=== PATIENT | female | born 1995 | race Caucasian/White ===

== ENCOUNTER 2018-03-29 14:07 | Emergency (ER) | payer BC ==
[~2018-03-29] VITALS: Ht 165.1 cm; Wt 47.7 kg
[2018-03-29 14:12] VITALS: BP 105/55; PULSE 80; RESP 16; TEMP 98.9; O2SAT 97
[2018-03-29] MEDS ORDERED: predniSONE 5 MG/5 ML CUP PO ONE (15:00)
--- NOTE | 2018-03-29 15:06 | PD ---
HPI Chief Complaint: Bite or Sting Time Seen by Provider: 14:41 Travel History International Travel<30 days: No Contact w/Intl Traveler<30days: No Traveled to known affect area: No History of Present Illness HPI 22-year-old female presents emergency department for evaluation of presumed bug bites the bilateral lower extremities. Says that these lesions developed 2-3 days ago while walking to class. She denies any exposures. She denies actually seeing insects or feeling bug bites but as she was walking to class in class she noticed the increased swelling and redness of the lesions. Says that they are intensely pruritic and she has been using Benadryl and cortisone without significant improvement. Patient denies any exposures, new soaps or lotions, medications. She denies fever but says she has had chills. Says she has somewhat of an allergy to bug bites but usually goes away on its own. She denies history of anaphylaxis. She has no other complaints today. PFSH Past Medical History ?: Not LMP: 03/08/18 Social History Alcohol Use: No Tobacco Use: No Substance Use: No Allergies-Medications (Allergen,Severity, Reaction): Coded Allergies: No Known Allergies (Unverified , 03/29/18) Reported Meds & Prescriptions Reported Meds & Active Scripts Active Cephalexin Liq (Cephalexin Monohydrate) 250 Mg/5 Ml Susp 500 Mg PO Q8HR 7 Days Prednisone Liq (Prednisone) 5 Mg/5 Ml Soln 10 Mg PO DAILY 5 Days Review of Systems Except as stated in HPI: all other systems reviewed are Neg Physical Exam Narrative GENERAL: Well-nourished, well-developed patient, in NAD SKIN: Focused skin assessment warm/dry. No rashes or lesions. Bilateral lower extremities-scattered raised plaques measuring 5 mm with surrounding area of erythema approximately 5 cm, no obvious excoriations. No lymph angiopathic spread. HEAD: Normocephalic. Atraumatic. EYES: No scleral icterus. No injection or drainage. THROAT:Airway is patent. NECK: Supple, trachea midline. No JVD or lymphadenopathy. No meningismus. CARDIOVASCULAR: Regular rate and rhythm without murmurs, gallops, or rubs. RESPIRATORY: Breath sounds equal bilaterally. No accessory muscle use. No wheezes, rales, or rhonchi MUSCULOSKELETAL: No cyanosis, or edema. BACK: Nontender without obvious deformity. No CVA tenderness. Data Data Last Documented VS Vital Signs Date Time Temp Pulse Resp B/P (MAP) Pulse Ox O2 Delivery O2 Flow Rate FiO2 03/29/18 14:12 98.9 80 16 105/55 (72) 97 Orders Orders Prednisone Liq (Prednisone Liq) (03/29/18 15:00) Ed Discharge Order (03/29/18 15:07) MDM Medical Decision Making Medical Screen Exam Complete: Yes Emergency Medical Condition: Yes Differential Diagnosis Insect bites, allergic reaction, cellulitis, erythema multiforme Narrative Course 22-year-old female with history of Lyme's disease presents emergency department for evaluation of possible bug bites to bilateral lower extremities. Patient says they become intensely pruritic and is trying to stop taking them. Says Benadryl and cortisone have not relieved her symptoms. History and physical most consistent with an allergic reaction to bug bites. Prednisone administered in emergency department. Patient will be discharged with prednisone and Keflex. Advised to use Keflex only if her symptoms persist or worsen. She is advised to follow-up with a ticket dispenser changer if her symptoms do not improve. She states understanding will comply. Diagnosis Primary Impression: Allergic reaction Qualified Codes: T78.40XA - Allergy, unspecified, initial encounter Referrals: [employer] [facility] Patient Instructions: General Instructions, Insect Bite or Sting (ED) Additional Instructions: If your symptoms do not improve, I recommend following up with a ticket dispenser changer for further evaluation. Follow-up with your primary care physician. If your lesions increase in size, swelling or pain start the antibiotic. Take all medications as prescribed. Continue icing the area throughout the day. Scripts Cephalexin Liq (Cephalexin Liq) 250 Mg/5 Ml Susp 500 MG PO Q8HR for Infection for 7 Days, ML 0 Refills Prov: Myron Stephenson MD 03/29/18 Prednisone Liq (Prednisone Liq) 5 Mg/5 Ml Soln 10 MG PO DAILY for 5 Days, #50 ML 0 Refills Prov: Myron Stephenson MD 03/29/18 Disposition: 01 DISCHARGE HOME Condition: Stable Yarelis Mcdaniel March 29, 2018 15:06
[2018-03-29] MEDS ORDERED: PRED5SOL PO (15:07)
[2018-03-29] MEDS ORDERED: CEPH-460 PO (15:07)
[2018-03-29] MEDS ORDERED: CEPH250S PO (15:11)
== END 2018-03-29 16:00 | disposition home or self-care (01) ==
LOC: NEPD 14:07
DX: T78.40XA Allergy, unspecified, initial encounter (principal)
CPT/HCPCS: 99283; J7512

== ENCOUNTER 2018-03-31 14:00 | Emergency (ER) | payer SELFPAY ==
[~2018-03-31] VITALS: Ht 162.6 cm; Wt 47.0 kg
[~2018-03-31 14:00] MED LIST: CEPH250S PO; PRED5SOL PO
[2018-03-31 14:11] VITALS: BP 115/69; PULSE 98; RESP 16; TEMP 99.2; O2SAT 97
[2018-03-31] MEDS ORDERED: DIPH25CA PO (14:28)
[2018-03-31] MEDS ORDERED: PRAM10LO TOPICAL (14:28)
[2018-03-31] MEDS ORDERED: PRED10PA PO (14:28)
--- NOTE | 2018-03-31 14:33 | PD ---
HPI Chief Complaint: Skin Problem Time Seen by Provider: 14:16 Travel History International Travel<30 days: No Contact w/Intl Traveler<30days: No Traveled to known affect area: No History of Present Illness HPI 22-year-old patient presents emergency department with worsening pruritic raised red areas the lower extremities, forearms, and now anterior neck. She states she was seen 2 days ago for similar symptoms and given 5 mg prednisone daily, and Keflex. She states some of the lesions from that time have improved, but she is developed more which are very itchy. She denies fever , chills, body aches, or other symptoms. Patient does have a history of Lyme, but she states this feels much different. She denies any other recent exposures. She has no animals, but wonders if this could be from bedbugs. She is here as the pruritus is worsening and lesions are more numerous. She has no known drug allergies PFSH Past Medical History ?: Not LMP: EARLY MARCH Social History Alcohol Use: No Tobacco Use: No Substance Use: No Allergies-Medications (Allergen,Severity, Reaction): Coded Allergies: No Known Allergies (Unverified , 03/31/18) Reported Meds & Prescriptions Reported Meds & Active Scripts Active Diphenhydramine (Diphenhydramine HCl) 25 Mg Cap 25 Mg PO Q6H PRN Caladryl Topical (Pramoxine-Calamine Topical) 1-8 % Lotn 1 Applic TOPICAL DIRECTED PRN Prednisone (21) 10 mg tab Dose Pack (Prednisone) 10 Mg Pack 10 Mg PO DIRECTED Cephalexin Liq (Cephalexin Monohydrate) 250 Mg/5 Ml Susp 500 Mg PO Q8HR 7 Days Prednisone Liq (Prednisone) 5 Mg/5 Ml Soln 10 Mg PO DAILY 5 Days Review of Systems Except as stated in HPI: all other systems reviewed are Neg General / Constitutional: No: Fever Eyes: No: Visual changes HENT: No: Headaches Cardiovascular: No: Chest Pain or Discomfort Respiratory: No: Shortness of Breath Gastrointestinal: No: Abdominal Pain Genitourinary: No: Dysuria Musculoskeletal: No: Pain Skin: Positive Rash, Positive Itching, Positive Lesions Neurologic: No: Weakness Psychiatric: No: Depression Endocrine: No: Polydipsia Hematologic/Lymphatic: No: Easy Bruising Physical Exam Narrative GENERAL: Patient appears in no obvious distress per SKIN: Warm and dry. Normal color. Normal turgor. Patient has numerous slightly raised erythematous lesions consistent with what appear to be insect bites with localized reaction. There is no sign of abscess or infection. HEAD: Atraumatic. Normocephalic. EYES: Pupils equal and round. No scleral icterus. No injection or drainage. ENT: No nasal bleeding or discharge. Mucous membranes pink and moist. Pharynx is clear. Airways patent. NECK: Trachea midline. Supple and nontender. No lymphadenopathy CARDIOVASCULAR: Regular rate and rhythm. RESPIRATORY: No accessory muscle use. Clear to auscultation. Breath sounds equal bilaterally. MUSCULOSKELETAL: Extremities without clubbing, cyanosis, or edema. No obvious deformities. NEUROLOGICAL: Awake and alert. No obvious cranial nerve deficits. Motor grossly within normal limits. Five out of 5 muscle strength in the arms and legs. Normal speech. PSYCHIATRIC: Appropriate mood and affect; insight and judgment normal. Data Data Last Documented VS Vital Signs Date Time Temp Pulse Resp B/P (MAP) Pulse Ox O2 Delivery O2 Flow Rate FiO2 03/31/18 14:11 99.2 98 16 115/69 (84) 97 MDM Medical Decision Making Medical Screen Exam Complete: Yes Emergency Medical Condition: Yes Medical Record Reviewed: Yes Differential Diagnosis Pruritic rash. Insect bite. Local reaction. Question bedbugs. Narrative Course Patient was treated with a higher dose of prednisone Dosepak as prescribed. Patient should apply Caladryl to the affected areas every 6 hours. Patient to take Benadryl as well by mouth #30. Patient should try to eradicate the causing factor in her room. Patient can follow up with worsening symptoms as needed. Diagnosis Primary Impression: Insect bite of multiple sites with local reaction Patient Instructions: Bed Bugs (ED), General Instructions Additional Instructions: Patient was treated with a higher dose of prednisone Dosepak as prescribed. Patient should apply Caladryl to the affected areas every 6 hours. Patient to take Benadryl as well by mouth #30. Patient should try to eradicate the causing factor in her room. Patient can follow up with worsening symptoms as needed. Med/Other Pt SpecificInfo: Prescription(s) given Scripts Diphenhydramine (Diphenhydramine) 25 Mg Cap 25 MG PO Q6H Y for ALLERGIES, #30 CAP 0 Refills Prov: Jamal Whalen MD 03/31/18 Pramoxine-Calamine Topical (Caladryl Topical) 1-8 % Lotn 1 APPLIC TOPICAL DIRECTED Y for ITCHING, #1 BOTTLE 0 Refills Prov: Jamal Whalen MD 03/31/18 Prednisone (21) 10 mg tab Dose Pack (Prednisone (21) 10 mg tab Dose Pack) 10 Mg Pack 10 MG PO DIRECTED for Inflammation, #1 DSPK 0 Refills Prov: Jamal Whalen MD 03/31/18 Disposition: 01 DISCHARGE HOME Condition: Stable Claude Michael March 31, 2018 14:33
== END 2018-03-31 14:45 | disposition home or self-care (01) ==
LOC: NEPK 14:00
DX: S80.862A Insect bite (nonvenomous), left lower leg, initial encounter (principal); S80.861A Insect bite (nonvenomous), right lower leg, initial encounter; S50.862A Insect bite (nonvenomous) of left forearm, initial encounter; S50.861A Insect bite (nonvenomous) of right forearm, initial encounter; S10.96XA Insect bite of unspecified part of neck, initial encounter; W57.XXXA Bitten or stung by nonvenomous insect and other nonvenomous arthropods, initial encounter
CPT/HCPCS: 99283